=== PATIENT | female | born 1965 | race Hispanic/Latino ===

== ENCOUNTER 2017-04-27 16:03 | Emergency (ER) | payer MEDICARE ==
[2017-04-27 18:26] LABS: Basophils # (Auto) 0.1 K/mm3 (0.0-0.1); Basophils % (Auto) 0.9 % (0.0-1.8); Eosinophils # (Auto) 0.3 K/mm3 (0.0-0.4); Eosinophils % (Auto) 3.9 % (0.0-4.3); Hematocrit 45.6 % (30.3-42.9); Hemoglobin 15.6 gm/dl (10.1-14.3); Lymphocytes # (Auto) 2.8 K/mm3 (1.2-5.4); Lymphocytes % (Auto) 40.2 % (13.4-35.0); Mean Corpuscular HGB Conc 34 % (30-34); Mean Corpuscular Hemoglobin 34 pg (28-32); Mean Corpuscular Volume 100 fl (79-97); Monocytes # (Auto) 0.5 K/mm3 (0.0-0.8); Monocytes % (Auto) 7.5 % (0.0-7.3); Platelet Count 258 K/mm3 (140-440); Red Blood Count 4.58 M/mm3 (3.65-5.03); Red Cell Distribution Width 16.1 % (13.2-15.2)
[2017-04-27 18:43] LABS: BUN/Creatinine Ratio 16; Blood Urea Nitrogen 14 mg/dL (7-17); Calcium 9.2 mg/dL (8.4-10.2); Hemolysis Index 13
[2017-04-27 19:06] LABS: Alanine Aminotransferase 17 units/L (7-56); Albumin 4.6 g/dL (3.9-5)
[2017-04-27 19:13] LABS: Bilirubin,Direct < 0.2 mg/dL (0-0.2)
[2017-04-28] MEDS ORDERED: ZOFRAN ODT PO ONE (01:28)
[2017-04-28] MEDS ORDERED: LIBRIUM PO PRN ×2 (01:28)
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
[2017-04-28 01:38] VITALS: BP 130/91
[2017-04-28] MEDS ORDERED: TYLENOL ONE (02:47)
[2017-04-28] MEDS ORDERED: TYLENOL PO ONE (03:04)
[2017-04-28 04:03] LABS: Amorphous Crystals,Urine 1+; Bilirubin,Urine NEG (Negative); Blood,Urine MOD (Negative); Color,Urine Straw (Yellow); Hyaline Casts,Urine 3 /LPF; Mucus,Urine FEW /HPF; Nitrite,Urine NEG (Negative); Protein,Urine <15 mg/dL mg/dL (Negative); Urobilinogen,Urine < 2.0 mg/dL (<2.0)
[2017-04-28 04:05] LABS: Amphetamine Screen,Urine PRESUMPTIVE NEGATIVE; Benzodiazepines Screen,Urine PRESUMPTIVE NEGATIVE; Cannabinoid Screen,Urine PRESUMPTIVE NEGATIVE; Cocaine Screen,Urine PRESUMPTIVE NEGATIVE; Methadone Screen,Urine PRESUMPTIVE NEGATIVE; Opiate Screen,Urine PRESUMPTIVE NEGATIVE
== END 2017-04-28 05:27 ==
LOC: ED 16:03
DX: F10.230 Alcohol dependence with withdrawal, uncomplicated (principal); F10.29 Alcohol dependence with unspecified alcohol-induced disorder; F17.200 Nicotine dependence, unspecified, uncomplicated; N18.4 Chronic kidney disease, stage 4 (severe)
CPT/HCPCS: 36415; 80048; 80074; 80307; 81001; 85025; 99285; G0480; 80320; Q0162

== ENCOUNTER 2017-12-18 09:43 | Inpatient (IN) | payer MEDICARE ==
[2017-12-18 10:29] LABS: Basophils # (Auto) 0.1 K/mm3 (0.0-0.1); Basophils % (Auto) 1.3 % (0.0-1.8); Eosinophils # (Auto) 0.4 K/mm3 (0.0-0.4); Eosinophils % (Auto) 4.7 % (0.0-4.3); Hematocrit 37.3 % (30.3-42.9); Hemoglobin 12.8 gm/dl (10.1-14.3); Lymphocytes # (Auto) 0.7 K/mm3 (1.2-5.4); Lymphocytes % (Auto) 8.6 % (13.4-35.0); Mean Corpuscular HGB Conc 34 % (30-34); Mean Corpuscular Hemoglobin 36 pg (28-32); Mean Corpuscular Volume 105 fl (79-97); Monocytes # (Auto) 0.8 K/mm3 (0.0-0.8); Platelet Count 233 K/mm3 (140-440); Red Blood Count 3.54 M/mm3 (3.65-5.03); Red Cell Distribution Width 15.7 % (13.2-15.2)
[2017-12-18 10:44] LABS: BUN/Creatinine Ratio 7; Blood Urea Nitrogen 6 mg/dL (7-17); Calcium 9.2 mg/dL (8.4-10.2); Hemolysis Index 21
--- NOTE | 2017-12-18 11:00 | Emergency Department Report ---
ED Chest Pain HPI - General Chief Complaint: Chest Pain Stated Complaint: COUGH Time Seen by Provider: 12/18/17 11:00 Source: patient Mode of arrival: Ambulatory Limitations: No Limitations - History of Present Illness Initial Comments: Patient come to the emergency room complaining of chest pain and severe headache. Patient said the chest pain radiates to her left and she's been having very severe headache. Patient also complained and nonproductive cough. MD Complaint: chest pain -: Sudden Onset: during rest Pain Location: substernal Pain Radiation: LUE Severity: moderate Severity scale (0 -10): 6 Quality: sharp Consistency: constant Improves With: nothing Worsens With: nothing re: denies: nausea, vomting Other Symptoms: cough Treatments Prior to Arrival: none - Related Data On Oral Contraceptives: No Home Medications Medication Instructions Recorded Confirmed Last Taken Aspirin [Aspirin BABY CHEW TAB] 81 mg PO DAILY 12/18/17 12/18/17 Unknown Prazosin [Minipress] 1 mg PO BID 12/18/17 12/18/17 Unknown Sertraline HCl [Zoloft] 50 mg PO DAILY 12/18/17 12/18/17 Unknown carBAMazepine [TEGretol] 200 mg PO BID 12/18/17 12/18/17 Unknown Allergies Allergy/AdvReac Type Severity Reaction Status Date / Time Sulfa (Sulfonamide Allergy Anaphylaxis Verified 04/27/17 17:25 Antibiotics) Heart Score - HEART Score History: Moderately suspicious EKG: Non-specific Age: 45-65 Risk factors: 1-2 risk factors Troponin: < normal limit HEART Score: 4 - Critical Actions Critical Actions: 4-6 pts:12-16.6% risk of adverse cardiac event. Should be admitted ED Review of Systems ROS: Stated complaint: COUGH Other details as noted in HPI Comment: All other systems reviewed and negative Constitutional: denies: chills, fever Eyes: denies: eye pain, eye discharge ENT: denies: ear pain Respiratory: cough, shortness of breath Cardiovascular: chest pain, palpitations Endocrine: no symptoms reported Gastrointestinal: denies: abdominal pain, nausea, vomiting, diarrhea Genitourinary: denies: urgency, dysuria Musculoskeletal: denies: back pain, joint swelling Skin: denies: rash, lesions Neurological: headache. denies: numbness, paresthesias, confusion Psychiatric: denies: anxiety, depression Hematological/Lymphatic: denies: easy bleeding, easy bruising ED Past Medical Hx - Past Medical History Previous Medical History?: Yes Hx Renal Disease: Yes (stage 4 CKD) Hx Seizures: Yes Hx Psychiatric Treatment: Yes (PTSD Dx 2009) Additional medical history: hypothyroidism - Surgical History Hx Cholecystectomy: Yes (2007) Additional Surgical History: gastric bypass 1998 - Social History Smoking Status: Current Every Day Smoker Substance Use Type: None - Medications Home Medications: Home Medications Medication Instructions Recorded Confirmed Last Taken Type Aspirin [Aspirin BABY CHEW TAB] 81 mg PO DAILY 12/18/17 12/18/17 Unknown History Prazosin [Minipress] 1 mg PO BID 12/18/17 12/18/17 Unknown History Sertraline HCl [Zoloft] 50 mg PO DAILY 12/18/17 12/18/17 Unknown History carBAMazepine [TEGretol] 200 mg PO BID 12/18/17 12/18/17 Unknown History ED Physical Exam - General Limitations: No Limitations General appearance: alert, in no apparent distress - Head Head exam: Present: atraumatic, normocephalic, normal inspection - Eye Eye exam: Present: normal appearance, PERRL, EOMI Pupils: Present: normal accommodation - ENT ENT exam: Present: normal exam, normal orophraynx, mucous membranes moist - Neck Neck exam: Present: normal inspection, tenderness, full ROM - Respiratory Respiratory exam: Present: normal lung sounds bilaterally. Absent: respiratory distress, wheezes, rales, rhonchi, stridor - Cardiovascular Cardiovascular Exam: Present: regular rate, normal rhythm, normal heart sounds - GI/Abdominal GI/Abdominal exam: Present: soft. Absent: distended, tenderness, guarding, rebound, rigid, normal bowel sounds, diminished bowel sounds - Extremities Exam Extremities exam: Present: normal inspection, full ROM, normal capillary refill - Back Exam Back exam: Present: normal inspection, full ROM. Absent: tenderness - Neurological Exam Neurological exam: Present: alert, oriented X3, CN II-XII intact - Psychiatric Psychiatric exam: Present: normal affect, normal mood - Skin Skin exam: Present: warm, dry, intact, normal color. Absent: rash ED Course Vital Signs 12/18/17 12/18/17 12/18/17 10:09 11:03 11:57 Temperature 99.0 F 98.4 F Pulse Rate 99 H 101 H 87 Respiratory 18 12 13 Rate Blood Pressure 121/89 Blood Pressure 110/77 115/84 [Left] O2 Sat by Pulse 95 95 93 Oximetry 12/18/17 12/18/17 12:10 18:07 Temperature 97.3 F L Pulse Rate 86 Respiratory 15 16 Rate Blood Pressure Blood Pressure 131/91 [Left] O2 Sat by Pulse 97 Oximetry - Reevaluation(s) Reevaluation #1: 12/18/17 15:30 I called [facility] and spoke with [facility] physician on duty Dr Mondragon. She wants patient to be admitted here at [facility] for chest pain. 12/18/17 17:44 Patient admitted by the hospitalist on-call Dr. Marte. CHRISTEN score - Christen Score Age > 65: (0) No Aspirin use within the Past 7 Days: (1) Yes 3 or more CAD Risk Factors: (0) No 2 or more Angina events in past 24 hrs: (0) No Known CAD with more than 50% Stenosis: (0) No Elevated Cardiac Markers: (0) No ST Deviation Greater than 0.5mm: (0) No CHRISTEN Score: 1 ED Medical Decision Making - Lab Data Result diagrams: 12/18/17 19:43 12/18/17 10:18 - EKG Data -: EKG Interpreted by Ma EKG shows normal: sinus rhythm Rate: normal (91) - EKG Data When compared to previous EKG there are: previous EKG unavailable Interpretation: nonspecific ST-T wave yves, other (Q waves V1 through V4. No STEMI.) - Radiology Data Radiology results: report reviewed, image reviewed - Medical Decision Making Chest pain. Critical care attestation.: If time is entered above; I have spent that time in minutes in the direct care of this critically ill patient, excluding procedure time. ED Disposition Clinical Impression: Chest pain Qualifiers: Chest pain type: unspecified Qualified Code(s): R07.9 - Chest pain, unspecified Disposition: DC-09 OP ADMIT IP TO THIS HOSP Is pt being admited?: Yes Does the pt Need Aspirin: Yes Condition: Stable Time of Disposition: 15:37
[2017-12-18] MEDS ORDERED: NACL 0.9% 1000 ML 1,000 ML IV ONE ×2 (11:03→13:43)
[2017-12-18 11:46] LABS: INR 0.92 (0.87-1.13); Partial Thromboplastin Time 23.2 Sec. (24.2-36.6)
[2017-12-18 11:47] LABS: Alanine Aminotransferase 10 units/L (7-56); Albumin 3.7 g/dL (3.9-5)
--- NOTE | 2017-12-18 11:51 | XRay Report ---
AP CHEST: HISTORY: Cough AP view of the chest demonstrates a normal mediastinal and cardiac contour with clear lungs and normal bony and soft tissue structures. IMPRESSION: Unremarkable AP chest.
[2017-12-18 11:57] LABS: Bilirubin,Direct < 0.2 mg/dL (0-0.2)
[2017-12-18] MEDS ORDERED: ZOFRAN IV ONE (12:00)
[2017-12-18] MEDS ORDERED: MORPHINE IV ONE ×2 (12:00→13:46)
[2017-12-18] MEDS ORDERED: MORPHINE ONE ×2 (12:02→12:03)
[2017-12-18] MEDS ORDERED: ZOFRAN ONE ×2 (12:03→16:34)
[2017-12-18] MEDS ORDERED: TESSALON PERLES PO ONE (12:53)
--- NOTE | 2017-12-18 13:17 | Cat Scan Report ---
CT HEAD WITHOUT CONTRAST: HISTORY: Headache. TECHNIQUE: Sequential 2.5mm CT images. COMPARISON: none. FINDINGS: Cerebral Parenchyma: Within normal limits. Cerebellum: Within normal limits. Brainstem: Within normal limits. Ventricles: Normal. Sella: Normal. Extra-axial spaces: Normal. Basal Cisterns: Normal. Intracranial Hemorrhage: None. Midline Shift: None. Calvarium: Normal. Sinuses: Normal. Mastoid Air Cells: Normal. Visualized Orbits: Normal. IMPRESSION: Cranial CT scan within normal limits.
[2017-12-18] MEDS ORDERED: LEVAQUIN 750MG/150ML 750 MG/150 ML BAG IV ONE (13:45)
--- NOTE | 2017-12-18 14:42 | Cat Scan Report ---
CTA CHEST: HISTORY: chest pain. COMPARISON: none. TECHNIQUE: Helical CT in 1.25mm intervals following IV contrast. Pulmonary embolus protocol. Sagittal and coronal reformatted images. Rotational MIP images. FINDINGS: Contrast bolus is satisfactory. No pulmonary embolus is identified. Thyroid gland: Normal. Tracheobronchial tree: Normal. Esophagus: Normal. Heart: Normal. Pericardium: Normal. Mediastinum: Normal. Lung Chapman: Normal. Pleural Spaces: Normal. Musculoskeletal: Normal. IMPRESSION: No evidence for pulmonary embolus. Unremarkable CT chest with contrast.
--- NOTE | 2017-12-18 16:01 | History and Physical Report ---
History of Present Illness Chief complaint: My chest hurts History of present illness: 52 YO Female with Seizure Disorder, PTSD, Anxiety, Hypothyroidism, Obesity, Nicotine Dependence presents to ED for evaluation. Pt states that she has experienced pain in her chest over the past 3 days with persistent symptoms over the same time frame. Pt states that pain is 6/10, substernal, radiates to the left shoulder, constant, not worsened with exertion, not relieved with rest , associated with productive cough and shortness of breath. Pt also acknowledges subjective fever. Pt denies palpitations, NVD, Syncope, Trauma, BRBPR, Unintentional weight loss, night sweats, unilateral leg swelling, calf pain, prolonged travel/immobility, hemoptysis, individual/family history of DVT/ PE. Pt seen and evaluated in ED and found to have symptoms consistent with ACS as well as Diastolic CHF. Pt admitted to telemetry. Past History Past Medical History: hypothyroidism, seizures Past Surgical History: cholecystectomy, bowel surgery Social history: , smoking Family history: hypertension Medications and Allergies Allergies Allergy/AdvReac Type Severity Reaction Status Date / Time Sulfa (Sulfonamide Allergy Anaphylaxis Verified 04/27/17 17:25 Antibiotics) Home Medications Medication Instructions Recorded Confirmed Last Taken Type Aspirin [Aspirin BABY CHEW TAB] 81 mg PO DAILY 12/18/17 12/18/17 Unknown History Prazosin [Minipress] 1 mg PO BID 12/18/17 12/18/17 Unknown History Sertraline HCl [Zoloft] 50 mg PO DAILY 12/18/17 12/18/17 Unknown History carBAMazepine [TEGretol] 200 mg PO BID 12/18/17 12/18/17 Unknown History Review of Systems Constitutional: no weight loss, no weight gain, no fever, no chills Ears, nose, mouth and throat: no ear pain, no ear discharge, no tinnitis, no decreased hearing, no nose pain Breasts: no change in shape, no swelling, no mass Cardiovascular: chest pain, shortness of breath, no palpitations, no edema, no syncope, no dyspnea on exertion, no paroxysmal nocturnal dyspnea, no claudication Respiratory: cough Gastrointestinal: no nausea, no vomiting, no diarrhea, no constipation Genitourinary Female: no pelvic pain, no flank pain, no menorrhagia, no dysuria , no urinary frequency Rectal: no pain, no incontinence, no bleeding Musculoskeletal: no neck stiffness, no neck pain, no shooting arm pain, no arm numbness/tingling, no low back pain, no shooting leg pain Integumentary: no rash, no pruritis, no redness, no sores, no wounds Neurological: no paralysis, no weakness, no parathesias, no numbness, no tingling, no seizures Psychiatric: no anxiety, no memory loss, no change in sleep habits Endocrine: no cold intolerance, no heat intolerance, no polyphagia, no excessive thirst, no polydipsia Hematologic/Lymphatic: no easy bruising, no easy bleeding, no lymphadenopathy, no lymphedema Allergic/Immunologic: no urticaria, no allergic rhinitis, no wheezing Exam - Constitutional Vitals: Temp Pulse Resp BP Pulse Ox 98.4 F 87 15 115/84 93 12/18/17 11:03 12/18/17 11:57 12/18/17 12:10 12/18/17 11:57 12/18/17 11:57 General appearance: Present: mild distress, obese - EENT Eyes: Present: PERRL ENT: hearing intact, clear oral mucosa - Neck Neck: Present: supple, normal ROM - Respiratory Respiratory effort: normal Respiratory: bilateral: CTA - Cardiovascular Heart Sounds: Present: S1 & S2. Absent: rub, click - Extremities Extremities: pulses symmetrical, No edema Peripheral Pulses: within normal limits - Abdominal General gastrointestinal: Present: soft, non-tender, non-distended, normal bowel sounds Female genitourinary: Present: normal - Integumentary Integumentary: Present: clear, warm, dry - Musculoskeletal Musculoskeletal: gait normal, strength equal bilaterally - Psychiatric Psychiatric: appropriate mood/affect, intact judgment & insight - Neurologic Neurologic: CNII-XII intact, moves all extremities Results - Labs CBC & Chem 7: 12/18/17 19:43 12/18/17 19:47 Labs: Abnormal lab results 12/18/17 12/18/17 12/18/17 Range/Units 10:18 10:18 11:11 RBC 3.54 L (3.65-5.03) M/mm3 MCV 105 H (79-97) fl MCH 36 H (28-32) pg RDW 15.7 H (13.2-15.2) % Lymph % (Auto) 8.6 L (13.4-35.0) % Twiggs % (Auto) 10.0 H (0.0-7.3) % Eos % (Auto) 4.7 H (0.0-4.3) % Lymph # 0.7 L (1.2-5.4) K/mm3 Seg Neutrophils % 75.4 H (40.0-70.0) % APTT (24.2-36.6) Sec. D-Dimer (0-234) ng/mlDDU BUN 6 L (7-17) mg/dL Glucose 108 H (65-100) mg/dL Albumin 3.7 L (3.9-5) g/dL 12/18/17 Range/Units 11:11 RBC (3.65-5.03) M/mm3 MCV (79-97) fl MCH (28-32) pg RDW (13.2-15.2) % Lymph % (Auto) (13.4-35.0) % Twiggs % (Auto) (0.0-7.3) % Eos % (Auto) (0.0-4.3) % Lymph # (1.2-5.4) K/mm3 Seg Neutrophils % (40.0-70.0) % APTT 23.2 L (24.2-36.6) Sec. D-Dimer 857.9 H (0-234) ng/mlDDU BUN (7-17) mg/dL Glucose (65-100) mg/dL Albumin (3.9-5) g/dL Assessment and Plan - Patient Problems (1) ACS (acute coronary syndrome) Current Visit: Yes Status: Acute Plan to address problem: Admit to telemetry, cardiology consulted in ED, serial cardiac enzymes, ekg, telemetry, stress test,morphine, supplemental oxygen, nitro, aspirin, (2) Diastolic CHF Current Visit: Yes Status: Acute Qualifiers: Heart failure chronicity: acute Qualified Code(s): I50.31 - Acute diastolic (congestive) heart failure Plan to address problem: Admit to telemetry, Echo, strict I/O, monitor uop q shift, daily weight, cardiology consulted, BNP, D Dimer, CTA chest, pulse oximetry, chest x ray (3) Nicotine dependence unspecified, with withdrawal Current Visit: Yes Status: Acute Qualifiers: Nicotine product type: cigarettes Qualified Code(s): F17.213 - Nicotine dependence, cigarettes, with withdrawal Plan to address problem: smoking cessation counseling, supportive care. (4) Anxiety Current Visit: Yes Status: Acute Plan to address problem: Ativan prn, supportive care. (5) DVT prophylaxis Current Visit: Yes Status: Acute Plan to address problem: SCD to BLE while in bed.
[2017-12-18] MEDS ORDERED: PROVENTIL IH PRN (16:49)
[2017-12-18] MEDS ORDERED: ZOFRAN IV PRN (16:49)
[2017-12-18] MEDS ORDERED: SODIUM CHLORIDE FLUSH SYRINGE 10 ML IV PRN ×2 (16:49)
[2017-12-18 19:06] LABS: Bilirubin,Urine NEG (Negative); Blood,Urine NEG (Negative); Color,Urine Yellow (Yellow); Protein,Urine <15 mg/dL mg/dL (Negative); Urobilinogen,Urine < 2.0 mg/dL (<2.0)
[2017-12-18] MEDS: MORPHINE IV PRN (19:58)
[2017-12-18 20:16] LABS: Hematocrit 36.7 % (30.3-42.9); Hemoglobin 12.4 gm/dl (10.1-14.3); Mean Corpuscular HGB Conc 34 % (30-34); Mean Corpuscular Hemoglobin 37 pg (28-32); Mean Corpuscular Volume 108 fl (79-97); Red Blood Count 3.39 M/mm3 (3.65-5.03); Red Cell Distribution Width 15.8 % (13.2-15.2)
[2017-12-18 20:17] LABS: Basophils # (Auto) 0.2 K/mm3 (0.0-0.1); Basophils % (Auto) 2.2 % (0.0-1.8); Eosinophils # (Auto) 0.4 K/mm3 (0.0-0.4); Eosinophils % (Auto) 4.7 % (0.0-4.3); Lymphocytes # (Auto) 0.9 K/mm3 (1.2-5.4); Lymphocytes % (Auto) 12.2 % (13.4-35.0); Monocytes # (Auto) 0.9 K/mm3 (0.0-0.8); Monocytes % (Auto) 11.7 % (0.0-7.3); Platelet Count 215 K/mm3 (140-440)
[2017-12-18 20:37] LABS: BUN/Creatinine Ratio 8; Blood Urea Nitrogen 7 mg/dL (7-17); Calcium 8.3 mg/dL (8.4-10.2); Hemolysis Index 5
[2017-12-18] MEDS: SODIUM CHLORIDE FLUSH SYRINGE 10 ML IV SCH (21:44)
[2017-12-18] MEDS: MINIPRESS PO SCH (21:44)
[2017-12-18] MEDS: TYLENOL PO PRN (22:30)
[2017-12-18] MEDS: ATIVAN PO PRN (22:30)
[2017-12-18] MEDS: ZOLOFT PO SCH (22:31)
[2017-12-19] MEDS: TYLENOL PO PRN ×2 (01:16→09:23)
[2017-12-19] MEDS: MINIPRESS PO SCH ×2 (09:22→22:50)
[2017-12-19] MEDS: ATIVAN PO PRN ×2 (09:22→17:13)
[2017-12-19] MEDS: BABY ASPIRIN PO SCH (09:23)
[2017-12-19] MEDS: ZOLOFT PO SCH (09:25)
[2017-12-19] MEDS: SODIUM CHLORIDE FLUSH SYRINGE 10 ML IV SCH ×2 (09:25→22:50)
[2017-12-19] MEDS ORDERED: ZOLOFT PO SCH (10:00)
[2017-12-19] MEDS: MORPHINE IV PRN (13:23)
--- NOTE | 2017-12-19 13:38 | Consultation ---
History of Present Illness Consult date: 12/19/17 Consult reason: chest pain History of present illness: The patient states 52-year-old woman who presented to the emergency room with 4 days of fever, chills, nonproductive persistent cough. At home, her temperature was as high as 102. In the setting of persistent upper respiratory tract symptoms, she also developed some chest pain which was positional but mostly aggravated by spells of coughing. On her presentation, she was processed for headache workup with serial troponins , serial ECGs, echocardiogram, stress test and a cardiology consultation. Troponin levels are negative, ECG is a normal sinus rhythm, poor R-wave progression but no ST or T-wave abnormalities. Echocardiogram preliminary findings of well preserved left ventricular systolic function, no acute findings. Patient's chest x-ray shows normal cardiac silhouette, clear lungs, but a small right pleural effusion. At this time, the patient still complains of generalized body aches, headache, continued and persistent coughing. There is no prior cardiac history, no prior cardiac workup. Past History Past Medical History: hypothyroidism, seizures Past Surgical History: cholecystectomy, bowel surgery Social history: , smoking Family history: hypertension Medications and Allergies Allergies Allergy/AdvReac Type Severity Reaction Status Date / Time Sulfa (Sulfonamide Allergy Anaphylaxis Verified 04/27/17 17:25 Antibiotics) Home Medications Medication Instructions Recorded Confirmed Last Taken Type Aspirin [Aspirin BABY CHEW TAB] 81 mg PO DAILY 12/18/17 12/18/17 Unknown History Prazosin [Minipress] 1 mg PO BID 12/18/17 12/18/17 Unknown History Sertraline HCl [Zoloft] 50 mg PO DAILY 12/18/17 12/18/17 Unknown History carBAMazepine [TEGretol] 200 mg PO BID 12/18/17 12/18/17 Unknown History Amoxicillin/Potassium Clav 1 each PO BID #10 tablet 12/19/17 Unknown Rx [Augmentin 875-125 Tablet] Nicotine [Nicotine Patch] 1 each TD DAILY #7 patch.td24 12/19/17 Unknown Rx Active Meds: Active Medications Acetaminophen (Tylenol) 650 mg PO Q4H PRN PRN Reason: Pain MILD(1-3)/Fever >100.5/MCFADDEN Last Admin: 12/19/17 09:23 Dose: 650 mg Albuterol (Proventil) 2.5 mg IH Q4HRT PRN PRN Reason: Shortness Of Breath Albuterol/Ipratropium (Duoneb *Not For Prn Use*) 1 ampul IH Q6HRT [facility] Arformoterol Tartrate (Brovana Nebu) 15 mcg IH Q12HRT [facility] Aspirin (Baby Aspirin) 81 mg PO DAILY [facility] Last Admin: 12/19/17 09:23 Dose: 81 mg Budesonide (Pulmicort) 0.5 mg IH Q12HRT [facility] Carbamazepine (Tegretol) 200 mg PO BID [facility] Last Admin: 12/19/17 09:23 Dose: 200 mg Lorazepam (Ativan) 1 mg PO Q8HR PRN PRN Reason: Agitation Last Admin: 12/19/17 09:22 Dose: 1 mg Methylprednisolone Sodium Succinate (Solu-Medrol) 40 mg IV Q8HR [facility] Morphine Sulfate (Morphine) 2 mg IV Q4H PRN PRN Reason: Pain, Moderate (4-6) Last Admin: 12/19/17 13:23 Dose: 2 mg Nicotine (Habitrol) 14 mg TD QDAY [facility] Ondansetron HCl (Zofran) 4 mg IV Q8H PRN PRN Reason: Nausea And Vomiting Last Admin: 12/19/17 01:18 Dose: 4 mg Prazosin HCl (Minipress) 1 mg PO BID [facility] Last Admin: 12/19/17 09:22 Dose: 1 mg Sertraline HCl (Zoloft) 50 mg PO DAILY [facility] Last Admin: 12/19/17 09:25 Dose: Not Given Sodium Chloride (Sodium Chloride Flush Syringe 10 Ml) 10 ml IV BID [facility] Last Admin: 12/19/17 09:25 Dose: 10 ml Sodium Chloride (Sodium Chloride Flush Syringe 10 Ml) 10 ml IV PRN PRN PRN Reason: LINE FLUSH Sodium Chloride (Sodium Chloride Flush Syringe 10 Ml) 10 ml IV PRN PRN PRN Reason: LINE FLUSH Review of Systems Cardiovascular: chest pain, shortness of breath, no orthopnea, no palpitations, no rapid/irregular heart beat, no edema, no syncope, no lightheadedness Respiratory: cough Physical Examination Vital Signs Temp Pulse Resp BP Pulse Ox 99.0 F 99 H 18 121/89 95 12/18/17 10:12/18/17 10:12/18/17 10:12/18/17 10:09 12/18/17 10:09 General appearance: no acute distress HEENT: Positive: PERRL Neck: Positive: neck supple Cardiac: Positive: Reg Rate and Rhythm Lungs: Positive: Decreased Breath Sounds Neuro: Positive: Grossly Intact Abdomen: Positive: Soft Female genitourinary: deferred Skin: Positive: Clear Extremities: Absent: edema Results 12/18/17 19:43 12/18/17 19:47 CBC 12/18/17 Range/Units 19:43 WBC 7.6 (4.5-11.0) K/mm3 RBC 3.39 L (3.65-5.03) M/mm3 Hgb 12.4 (10.1-14.3) gm/dl Hct 36.7 (30.3-42.9) % Plt Count 215 (140-440) K/mm3 Lymph # 0.9 L (1.2-5.4) K/mm3 [place] # 0.9 H (0.0-0.8) K/mm3 Eos # 0.4 (0.0-0.4) K/mm3 Baso # 0.2 H (0.0-0.1) K/mm3 Comprehensive Metabolic Panel 12/18/17 Range/Units 19:47 Sodium 140 (137-145) mmol/L Potassium 3.9 (3.6-5.0) mmol/L Chloride 103.4 (98-107) mmol/L Carbon Dioxide 24 (22-30) mmol/L BUN 7 (7-17) mg/dL Creatinine 0.9 (0.7-1.2) mg/dL Glucose 82 (65-100) mg/dL Calcium 8.3 L (8.4-10.2) mg/dL EKG interpretations - Telemetry EKG Rhythm: Sinus Rhythm Assessment and Plan - Patient Problems (1) Chest pain Current Visit: Yes Status: Acute Qualifiers: Chest pain type: unspecified Qualified Code(s): R07.9 - Chest pain, unspecified Plan to address problem: The patient's chest pain is atypical, likely musculoskeletal from persistent coughing and upper respiratory tract and chest infection. I will cancel the stress test, patient has acute respiratory infection which needs to be treated prior to any elective cardiac stress test. Trial of intravenous Toradol to alleviate musculoskeletal type chest pain.
[2017-12-19] MEDS ORDERED: PHENERGAN PO PRN (13:42)
[2017-12-19] MEDS: DUONEB *Not for PRN Use IH SCH ×2 (15:19→20:33)
[2017-12-19] MEDS: BROVANA NEBU IH SCH ×2 (15:20→20:32)
[2017-12-19] MEDS: HABITROL TD SCH (15:56)
--- NOTE | 2017-12-19 15:56 | Progress Note ---
Assessment and Plan Assessment and plan: 52 YO Female with Seizure Disorder, PTSD, Anxiety, Hypothyroidism, Obesity, Nicotine Dependence presents to ED for evaluation. Pt states that she has experienced pain in her chest over the past 3 days with persistent symptoms over the same time frame. Pt states that pain is 6/10, substernal, radiates to the left shoulder, constant, not worsened with exertion, not relieved with rest , associated with productive cough and shortness of breath. Pt also acknowledges subjective fever. Pt denies palpitations, NVD, Syncope, Trauma, BRBPR, Unintentional weight loss, night sweats, unilateral leg swelling, calf pain, prolonged travel/immobility, hemoptysis, individual/family history of DVT/ PE. Pt seen and evaluated in ED and found to have symptoms consistent with ACS as well as Diastolic CHF. Pt admitted to telemetry. Continued information includes subjective fever with (1) URI Start on Pulmonary protocol as patient possibly has acute bronchitis with possible COPD exacerbation NEBS, LABA, KELLY, IV STEROIDS (2) Atypical chest pain Possible secondary to costochondritis from persistent coughing Hydromet prn (3)COPD exacerbation nebs as outlined above outpatient PFT Pulmonary consult (4) Diastolic CHF Current Visit: Yes Status: Acute Qualifiers: Heart failure chronicity: acute Qualified Code(s): I50.31 - Acute diastolic (congestive) heart failure Plan to address problem: Continue Echo, strict I/O, monitor uop q shift, daily weight, cardiology consulted and input noted, BNP, pulse oximetry, chest x ray CTA chest negative for PE (5) Nicotine dependence unspecified, with withdrawal Current Visit: Yes Status: Acute Qualifiers: Nicotine product type: cigarettes Qualified Code(s): F17.213 - Nicotine dependence, cigarettes, with withdrawal Plan to address problem: smoking cessation counseling, supportive care. (6) Anxiety Current Visit: Yes Status: Acute Plan to address problem: Ativan prn, supportive care. Continue home antipyschotics (7) DVT prophylaxis Current Visit: Yes Status: Acute Plan to address problem: SCD to BLE while in bed. Anticipate discharge in Am if improved. History Interval history: Patient seen and examined, continues to report cough. she states that she was seen in the hospital a month ago for a stroke scare and since then has significantly cut down on tobacco use. she reports only using 3 cigarettes today. she report recent irritable, cough with subjective fever and now persistent non productive cough leading to chest pain and generalized body pain Hospitalist Physical - Physical exam Narrative exam: VITAL SIGNS: Reviewed. GENERAL: The patient appeared well nourished and normally developed otherwise lathergic appearing. Vital signs as documented. HEAD: No signs of head trauma. EYES: Pupils are equal. Extraocular motions intact. EARS: Hearing grossly intact. MOUTH: Oropharynx is normal. NECK: No adenopathy, no JVD. CHEST: Chest with diminshed breath sounds bilaterally. mild exp wheezing CARDIAC: Regular rate and rhythm. S1 and S2, without murmurs, gallops, or rubs. VASCULAR: No Edema. Peripheral pulses normal and equal in all extremities. ABDOMEN: Soft, without detectable tenderness. No sign of distention. No rebound or guarding, and no masses palpated. Bowel Sounds normal. MUSCULOSKELETAL: Good range of motion of all major joints. Extremities without clubbing, cyanosis or edema. NEUROLOGIC EXAM: Alert and oriented x 3. No focal sensory or strength deficits. Speech normal. Follows commands. PSYCHIATRIC: Mood normal. SKIN: No rash or lesions. - Constitutional Vitals: Temp Pulse Resp BP Pulse Ox 97.9 F 73 16 117/81 91 12/19/17 08:00 12/19/17 08:00 12/19/17 08:00 12/19/17 08:00 12/19/17 08:00 General appearance: Present: no acute distress Results - Labs CBC & Chem 7: 12/18/17 19:43 12/18/17 19:47 Labs: Laboratory Last Values WBC 7.6 K/mm3 (4.5-11.0) 12/18/17 19:43 RBC 3.39 M/mm3 (3.65-5.03) L 12/18/17 19:43 Hgb 12.4 gm/dl (10.1-14.3) 12/18/17 19:43 Hct 36.7 % (30.3-42.9) 12/18/17 19:43 MCV 108 fl (79-97) H 12/18/17 19:43 MCH 37 pg (28-32) H 12/18/17 19:43 MCHC 34 % (30-34) 12/18/17 19:43 RDW 15.8 % (13.2-15.2) H 12/18/17 19:43 Plt Count 215 K/mm3 (140-440) 12/18/17 19:43 Lymph % (Auto) 12.2 % (13.4-35.0) L 12/18/17 19:43 [place] % (Auto) 11.7 % (0.0-7.3) H 12/18/17 19:43 Eos % (Auto) 4.7 % (0.0-4.3) H 12/18/17 19:43 Baso % (Auto) 2.2 % (0.0-1.8) H 12/18/17 19:43 Lymph # 0.9 K/mm3 (1.2-5.4) L 12/18/17 19:43 [place] # 0.9 K/mm3 (0.0-0.8) H 12/18/17 19:43 Eos # 0.4 K/mm3 (0.0-0.4) 12/18/17 19:43 Baso # 0.2 K/mm3 (0.0-0.1) H 12/18/17 19:43 Seg Neutrophils % 69.2 % (40.0-70.0) 12/18/17 19:43 Seg Neutrophils # 5.3 K/mm3 (1.8-7.7) 12/18/17 19:43 PT 12.9 Sec. (12.2-14.9) 12/18/17 11:11 INR 0.92 (0.87-1.13) 12/18/17 11:11 APTT 23.2 Sec. (24.2-36.6) L 12/18/17 11:11 D-Dimer 857.9 ng/mlDDU (0-234) H 12/18/17 11:11 Sodium 140 mmol/L (137-145) 12/18/17 19:47 Potassium 3.9 mmol/L (3.6-5.0) 12/18/17 19:47 Chloride 103.4 mmol/L (98-107) 12/18/17 19:47 Carbon Dioxide 24 mmol/L (22-30) 12/18/17 19:47 Anion Gap 17 mmol/L 12/18/17 19:47 BUN 7 mg/dL (7-17) 12/18/17 19:47 Creatinine 0.9 mg/dL (0.7-1.2) 12/18/17 19:47 Estimated GFR > 60 ml/min 12/18/17 19:47 BUN/Creatinine Ratio 8 % 12/18/17 19:47 Glucose 82 mg/dL (65-100) 12/18/17 19:47 Hemoglobin A1c 5.2 % (4-6) 12/18/17 19:46 Lactic Acid 0.80 mmol/L (0.7-2.0) 12/18/17 11:11 Calcium 8.3 mg/dL (8.4-10.2) L 12/18/17 19:47 Total Bilirubin 0.30 mg/dL (0.1-1.2) 12/18/17 11:11 Direct Bilirubin < 0.2 mg/dL (0-0.2) 12/18/17 11:11 Indirect Bilirubin 0.1 mg/dL 12/18/17 11:11 AST 19 units/L (5-40) 12/18/17 11:11 ALT 10 units/L (7-56) 12/18/17 11:11 Alkaline Phosphatase 67 units/L (35-129) 12/18/17 11:11 Troponin T < 0.010 ng/mL (0.00-0.029) 12/18/17 19:48 NT-Pro-B Natriuret Pep 386.7 pg/mL (0-900) 12/18/17 19:43 Total Protein 6.7 g/dL (6.3-8.2) 12/18/17 11:11 Albumin 3.7 g/dL (3.9-5) L 12/18/17 11:11 Albumin/Globulin Ratio 1.2 % 12/18/17 11:11 Urine Color Yellow (Yellow) 12/18/17 18:07 Urine Turbidity Slightly-cloudy (Clear) 12/18/17 18:07 Urine pH 6.0 (5.0-7.0) 12/18/17 18:07 Ur Specific [place] 1.044 (1.003-1.030) H 12/18/17 18:07 Urine Protein <15 mg/dl mg/dL (Negative) 12/18/17 18:07 Urine Glucose (UA) Neg mg/dL (Negative) 12/18/17 18:07 Urine Ketones Neg mg/dL (Negative) 12/18/17 18:07 Urine Blood Neg (Negative) 12/18/17 18:07 Urine Nitrite Neg (Negative) 12/18/17 18:07 Urine Bilirubin Neg (Negative) 12/18/17 18:07 Urine Urobilinogen < 2.0 mg/dL (<2.0) 12/18/17 18:07 Ur Leukocyte Esterase Neg (Negative) 12/18/17 18:07 Urine WBC (Auto) 5.0 /HPF (0.0-6.0) 12/18/17 18:07 Urine RBC (Auto) 3.0 /HPF (0.0-6.0) 12/18/17 18:07 U Epithel Cells (Auto) 3.0 /HPF (0-13.0) 12/18/17 18:07
[2017-12-19] MEDS: TORADOL IV SCH ×2 (16:02→22:05)
[2017-12-19] MEDS: PROTONIX PO SCH (16:03)
[2017-12-19] MEDS: SOLU-Medrol IV SCH ×2 (16:04→22:50)
[2017-12-19] MEDS: PULMICORT IH SCH ×2 (16:36→20:33)
[2017-12-19] MEDS: HYDROMET PO PRN (17:13)
[2017-12-19 22:54] VITALS: BP 101/62
[2017-12-20] MEDS: TORADOL IV SCH ×3 (02:00→13:47)
[2017-12-20] MEDS: SOLU-Medrol IV SCH ×2 (06:55→13:47)
[2017-12-20] MEDS: BROVANA NEBU IH SCH (07:54)
[2017-12-20] MEDS: PULMICORT IH SCH (07:54)
[2017-12-20] MEDS: DUONEB *Not for PRN Use IH SCH ×2 (08:08→13:19)
[2017-12-20] MEDS: ATIVAN PO PRN (08:37)
[2017-12-20] MEDS: TYLENOL PO PRN (08:37)
[2017-12-20 10:21] LABS: BUN/Creatinine Ratio 14; Blood Urea Nitrogen 10 mg/dL (7-17); Calcium 8.9 mg/dL (8.4-10.2); Hemolysis Index 19
[2017-12-20 10:28] LABS: Hematocrit 36.6 % (30.3-42.9); Hemoglobin 12.6 gm/dl (10.1-14.3); Mean Corpuscular HGB Conc 35 % (30-34); Mean Corpuscular Hemoglobin 37 pg (28-32); Mean Corpuscular Volume 107 fl (79-97); Platelet Count 221 K/mm3 (140-440); Red Blood Count 3.43 M/mm3 (3.65-5.03); Red Cell Distribution Width 15.4 % (13.2-15.2)
[2017-12-20] MEDS: HYDROMET PO PRN (10:44)
[2017-12-20] MEDS: MINIPRESS PO SCH (10:45)
[2017-12-20] MEDS: ZOLOFT PO SCH (10:45)
[2017-12-20] MEDS: BABY ASPIRIN PO SCH (10:45)
[2017-12-20] MEDS: PROTONIX PO SCH (10:46)
[2017-12-20] MEDS: SODIUM CHLORIDE FLUSH SYRINGE 10 ML IV SCH (10:46)
[2017-12-20] MEDS: MORPHINE IV PRN (11:04)
[2017-12-20] MEDS: HABITROL TD SCH (11:05)
--- NOTE | 2017-12-20 11:13 | Progress Note ---
Assessment and Plan Upper respiratory tract infection chest CTA -no evidence of PE Chest pain, musculoskeletal Echocardiogram reveals a well preserved left ventricular systolic function. Continue trial of IV toradol for musculoskeletal chest pain. Subjective Date of service: 12/20/17 Interval history: Patient reports she is feeling better. Reports her chest pain has improved. Objective Vital Signs Temp Pulse Pulse Resp Resp BP Pulse Ox 12/20/17 10:45 67 12/20/17 08:39 100 12/20/17 08:36 97 12/20/17 08:35 82 16 12/20/17 08:25 75 18 12/20/17 07:55 63 18 12/20/17 02:00 67 12/20/17 00:48 97 12/19/17 22:50 87 101/62 12/19/17 22:00 18 12/19/17 20:47 76 18 12/19/17 20:36 92 12/19/17 20:32 74 18 12/19/17 19:30 98.0 F 87 17 101/62 87 12/19/17 18:00 79 12/19/17 16:24 98.6 F 72 18 114/79 91 12/19/17 16:06 96 - Physical Examination General: No Apparent Distress HEENT: Positive: PERRL Cardiac: Positive: Reg Rate and Rhythm Lungs: Positive: Decreased Breath Sounds Neuro: Positive: Grossly Intact Extremities: Absent: edema - Labs and Meds CBC 12/20/17 Range/Units 09:21 WBC 5.4 (4.5-11.0) K/mm3 RBC 3.43 L (3.65-5.03) M/mm3 Hgb 12.6 (10.1-14.3) gm/dl Hct 36.6 (30.3-42.9) % Plt Count 221 (140-440) K/mm3 Comprehensive Metabolic Panel 12/20/17 Range/Units 09:21 Sodium 138 (137-145) mmol/L Potassium 4.2 (3.6-5.0) mmol/L Chloride 101.7 (98-107) mmol/L Carbon Dioxide 24 (22-30) mmol/L BUN 10 (7-17) mg/dL Creatinine 0.7 (0.7-1.2) mg/dL Glucose 142 H (65-100) mg/dL Calcium 8.9 (8.4-10.2) mg/dL
--- NOTE | 2017-12-20 12:30 | Discharge Summary ---
Providers - Providers Date of Admission: 12/18/17 16:50 Date of discharge: 12/20/17 Attending physician: ATIYA CELIS 12/18/17 Consult to Cardiac Rehabilitation [CONS] Routine Reason For Exam: Phase I 12/18/17 16:50 Consult to Cardiology [CONS] Routine Consulting Provider: MINDI EVERETT Reason For Exam: acs 12/19/17 13:15 Consult to Physician [CONS] Routine Comment: Consulting Provider: CARYN STOUT Physician Instructions: Reason For Exam: copd exacerbation Primary care physician: EMERGENCY MANAGEMENT SYSTEM DIRECTOR Hospitalization Condition: Fair Disposition: DC-01 TO HOME OR SELFCARE Core Measure Documentation - Palliative Care Palliative Care/ Comfort Measures: Not Applicable - Core Measures Any of the following diagnoses?: none Exam - Constitutional Vitals: Temp Pulse Resp BP Pulse Ox 98.0 F 67 18 101/62 100 12/19/17 19:30 12/20/17 10:45 12/20/17 10:00 12/19/17 22:50 12/20/17 08:39 Plan Activity: advance as tolerated Diet: low fat, low cholesterol, low salt Additional Instructions: 1. Follow up with PCP in 3-5 days. Follow up with: PRIMARY CARE,MD [Primary Care Provider] - 3-5 Days Prescriptions: Amoxicillin/Potassium Clav [Augmentin 875-125 Tablet] 1 each PO BID #10 tablet Benzonatate [Tessalon Perles] 100 mg PO Q8HR PRN #20 capsule PRN Reason: Cough Ibuprofen 400 mg PO TID PRN #30 tablet PRN Reason: pain Nicotine [Nicotine Patch] 1 each TD DAILY #7 patch.td24
--- NOTE | 2017-12-20 16:01 | Progress Note ---
Subjective Date of service: 12/20/17 Interval history: Came to see pt , she is already been DH. Will be glad to evaluate OPD for COPD if needed Objective Vital Signs - 12hr 12/20/17 12/20/17 12/20/17 07:55 08:25 08:35 Pulse Rate Pulse Rate [ 63 75 82 Throughout] Respiratory Rate Respiratory 18 18 16 Rate [ Throughout] O2 Sat by Pulse Oximetry 12/20/17 12/20/17 12/20/17 08:36 08:39 10:00 Pulse Rate 68 Pulse Rate [ Throughout] Respiratory 18 Rate Respiratory Rate [ Throughout] O2 Sat by Pulse 97 100 Oximetry 12/20/17 10:45 Pulse Rate 67 Pulse Rate [ Throughout] Respiratory Rate Respiratory Rate [ Throughout] O2 Sat by Pulse Oximetry CBC and BMP: 12/20/17 09:21 12/20/17 09:21 ABG, PT/INR, D-dimer: PT/INR, D-dimer PT 12.9 Sec. (12.2-14.9) 12/18/17 11:11 INR 0.92 (0.87-1.13) 12/18/17 11:11 D-Dimer 857.9 ng/mlDDU (0-234) H 12/18/17 11:11 Abnormal lab findings: Abnormal Labs 12/18/17 12/18/17 12/18/17 10:18 10:18 11:11 RBC 3.54 L MCV 105 H MCH 36 H MCHC RDW 15.7 H Lymph % (Auto) 8.6 L [place] % (Auto) 10.0 H Eos % (Auto) 4.7 H Baso % (Auto) Lymph # 0.7 L [place] # Baso # Seg Neutrophils % 75.4 H APTT D-Dimer BUN 6 L Glucose 108 H Calcium Albumin 3.7 L Ur Specific [place] 12/18/17 12/18/17 12/18/17 11:11 18:07 19:43 RBC 3.39 L MCV 108 H MCH 37 H MCHC RDW 15.8 H Lymph % (Auto) 12.2 L [place] % (Auto) 11.7 H Eos % (Auto) 4.7 H Baso % (Auto) 2.2 H Lymph # 0.9 L [place] # 0.9 H Baso # 0.2 H Seg Neutrophils % APTT 23.2 L D-Dimer 857.9 H BUN Glucose Calcium Albumin Ur Specific [place] 1.044 H 12/18/17 12/20/17 12/20/17 19:47 09:21 09:21 RBC 3.43 L MCV 107 H MCH 37 H MCHC 35 H RDW 15.4 H Lymph % (Auto) [place] % (Auto) Eos % (Auto) Baso % (Auto) Lymph # [place] # Baso # Seg Neutrophils % APTT D-Dimer BUN Glucose 142 H Calcium 8.3 L Albumin Ur Specific [place]
== END 2017-12-20 16:00 | disposition home or self-care (01) | DRG 190 ==
LOC: ED 09:43 → 4A 16:50
PROVIDERS: ADMIT Internal Medicine; ATTEND Internal Medicine
DX: J44.1 Chronic obstructive pulmonary disease with (acute) exacerbation (principal); I50.31 Acute diastolic (congestive) heart failure; F17.213 Nicotine dependence, cigarettes, with withdrawal; N18.4 Chronic kidney disease, stage 4 (severe); J06.9 Acute upper respiratory infection, unspecified; R07.89 Other chest pain; G40.909 Epilepsy, unspecified, not intractable, without status epilepticus; F43.10 Post-traumatic stress disorder, unspecified; F41.9 Anxiety disorder, unspecified; E03.9 Hypothyroidism, unspecified; E66.9 Obesity, unspecified; Z68.34 Body mass index [BMI] 34.0-34.9, adult; Z71.6 Tobacco abuse counseling; Z90.49 Acquired absence of other specified parts of digestive tract; Z82.49 Family history of ischemic heart disease and other diseases of the circulatory system; Z88.2 Allergy status to sulfonamides; Z79.82 Long term (current) use of aspirin; Z79.899 Other long term (current) drug therapy; Z98.84 Bariatric surgery status
CPT/HCPCS: 36415; 70450; 71045; 71275; 80048; 80074; 81001; 82140; 83036; 83880; 84484; 85025; 85027; 85379; 85610; 85730; 87040; 93005; 93010; 93306; 94640; 94760; 96361; 96365; 96375; 96376; J1885; J1956; J2270; J2405; J2920; J7030; Q9967